=== PATIENT | male | born 1955 | race Caucasian/White ===

== ENCOUNTER 2017-11-06 15:34 | Inpatient (IN) ==
[2017-11-06] MEDS ORDERED: LIDOCAINE 1% (10mg/ml) 2mL INJ PF SDV ID ONE (16:18)
[2017-11-06] MEDS ORDERED: NS 1,000 ML IV SCH (16:44)
[2017-11-06] MEDS ORDERED: CEFAZOLIN 1 G INJECTION IVP ONE (17:07)
--- NOTE | 2017-11-06 17:07 | Anesthesia Preoperative Report ---
Anesthesia Preoperative Record - Date and Time Date: 11/06/17 Preoperative Diagnosis: septic right knee Proposed Procedure: Right Knee Arthroscopy I & D NPO Since Date: 11/06/17 NPO Since Time: 12:00 Allergies/Adverse Reactions: Allergies Allergy/AdvReac Type Severity Reaction Status Date / Time codeine [Codiene] AdvReac Nausea Verified 11/06/17 16:49 - Medications Inpatient Medications: Current Medications Lactated Ringer's (Lactated Ringers) 1,000 mls @ 50 mls/hr IV .Q20H WILFRIDO Sodium Chloride (Normal Saline) 1,000 mls @ 75 mls/hr IV .[id number] WILFRIDO Home Medications: Home Medications Medication Instructions Recorded Confirmed Type Escitalopram Oxalate [Lexapro] 20 mg PO DAILY 11/06/17 11/06/17 History Hydrocodone/APAP 5/325 [[place] 1 tab PO PRN PRN 11/06/17 11/06/17 History 5/325] Omeprazole [Prilosec] 1 cap PO ACB 11/06/17 11/06/17 History Is Patient on Beta Shabnam?: No - Medical History Respiratory: DENIES: Asthma, Bronchitis, Chronic Obstructive Pulmonary Disease (COPD), Dyspnea, Orthopnea, Pulmonary Embolism, Pneumonia, Upper Respiratory Infection, Pulmonary Edema, Sleep Apnea, Tuberculosis, Other Cardiovascular: Reports: Hypertension DENIES: Abnormal EKG, Angina, Arrhythmia, Congestive Heart Failure, Coronary Artery Disease, Heart Murmur, Hypotension, High Cholesterol, Myocardial Infarction, Rheumatic Fever, Valvular Heart Disease, Other Gastrointestional: Reports: Gastroesophageal Reflux Disease DENIES: Obstructive Bowel, Hepatitis, Cirrhosis, Nausea or Vomiting Present, Gastrointestinal Bleeding, Hiatal Hernia, Ulcer, Morbid Obesity, Other Neuro/Musculoskeletal: Denies: HX.MS.OSAR, Back Problems, Cerebrovascular Accident, Depression, Headaches, Loss of Consciousness, Muscle Weakness, Neuromuscular Disorder, Paralysis, Paresthesia, Syncope, Seizures, Other Renal/Endocrine: DENIES: Diabetes Mellitus Type 1, Diabetes Mellitus Type 2, Renal Failure, Dialysis, Thyroid Disease, Weight Loss, Weight Gain, Other Other History: DENIES: Anesthesia Reactions, Now, Blood Transfusions, Chemotherapy , Cancer, Hemophilia, Malignant Hyperthermia, Sickle Cell Disease, Other - Surgical History Anesthesia Reactions: None Hx Family Anesthesia Reaction: No History of Motion Sickness: No - Social History Hx Chewing Tobacco Use: Yes (this am) Substance Use Type: does not use Alcohol Intake: current Alcohol Intake Frequency: 0-2 drinks per day - Pertinent Findings EKG: Sinus Rhythm - Physical Exam Respiratory Exam: Present: lungs clear, bilateral breath sounds equal Cardiovascular Exam: Present: regular rate and rhythm, no murmur - Airway Assessment Mallampati Score: III TMD: 3 Fingerbreadths Overall Assessment: no airway concerns - ASA ASA Score: 2, E - Plan Regional/Trunk Block: Spinal - Discussion Discussion: Discussed risks/options/alternatives of anesthesia and questions answered. Patient consents. Nursing pain assessment noted. Attestation Statement: Prior to the delivery of any anesthetic medication, I examined the patient, developed the plan, obtained the patient's consent and discussed the risk and benefits of the procedure with the patient/guardian. - Additional Information Comments: Dr Hung declaring case emergent. Pt has not been NPO for 8 hours. Elected to proceed with Spinal Anesthesia. Pt had Lovenox yesterday at 1518. Seen by Anesthesia: Yes
[2017-11-06] MEDS ORDERED: BUPIVACAINE 0.25% (2.5mg/ml) PF 30ml INJECTION ONE (17:24)
[2017-11-06] MEDS ORDERED: MEPERIDINE 100 MG/ML INJECTION ONE (17:24)
[2017-11-06] MEDS ORDERED: ROCURONIUM 50 MG/5 ML INJECTION IVP ONE (17:28)
[2017-11-06] MEDS ORDERED: SUCCINYLCHOLINE 20mg/mL 10mL INJECTION ONE (17:28)
[2017-11-06] MEDS ORDERED: FentaNYL 250 MCG/5 ML INJECTION ONE (17:28)
[2017-11-06] MEDS ORDERED: PROPOFOL 20 ML ONE (17:28)
[2017-11-06] MEDS: LR 1,000 ML IV SCH ×3 (17:30→20:25)
--- NOTE | 2017-11-06 17:33 | Orthopedic History & Physical ---
Orthopedic HPI - HPI Comments 62 yo male sent from [facility] with a possible right knee septic arthritis. Pt began having right knee pain about 5 weeks ago. He was first seen by his PCP on 10/06/17 and was put on a PO steroid & Indomethacin for suspected gout. It helped, but the pain soon returned. He was re-evaluated 10/14/17 and was given more PO steroids which again improved his symptoms for a few days. He returned 10/31/17 and received a steroid injection which greatly improved his pain until about 2 days ago. He presented to the ER in [place] and was admitted for pain control IV antibiotics and additional studies. CT scan of his knee showed a large effusion. The knee was aspirated on 11/05/17 and specimen was held overnight and sent to [facility] on AM for Gram stain and culture. I called the lab at [facility] and a cell count was not performed. Lab shows a CRP of 181, ESR of >40. Serum WBC was 11K. I called the lab at [facility] to obtain results. The Gram stain of the synovial fluid showed 20-30 WBC/hpf but no organisms. Culture is pending. I ordered a cell count and crystal analysis to be done on the sample at their facility. Pt has pain with ROM of the knee. No CV or resp symptoms. No other joint involvement. PFSH GERD Essential HTN. Surgical History: Tonsilectomy. Vasectomy - Social History Alcohol intake: current Alcohol intake frequency: other (Drinks beer daily.) Current occupational status: employed Does patient use chewing tobacco?: Yes Review of Systems - Constitutional Constitutional: Present: fever(s), weakness. Absent: chills, night sweats - Cardiovascular Cardiovascular: Absent: chest pain, palpitations, syncope - Respiratory Respiratory: Absent: cough - Gastrointestinal Gastrointestinal: Absent: abdominal pain, diarrhea, nausea, vomiting - Musculoskeletal Musculoskeletal: Present: as per HPI - Neurological Neurological: Absent: numbness, paresthesias, tingling Medications Home Medications Medication Instructions Recorded Confirmed Type Escitalopram Oxalate [Lexapro] 20 mg PO DAILY 11/06/17 11/06/17 History Hydrocodone/APAP 5/325 [[place] 1 tab PO PRN PRN 11/06/17 11/06/17 History 5/325] Omeprazole [Prilosec] 1 cap PO ACB 11/06/17 11/06/17 History Allergies Allergy/AdvReac Type Severity Reaction Status Date / Time codeine [Codiene] AdvReac Nausea Verified 11/06/17 16:49 Orthopedic Exam - Constitutional General Appearance: Present: alert, cooperative, no acute distress - Respiratory Exam Present: CTA bilaterally, non-labored - Cardiovascular Exam Present: Regular Rate/Rhythm, pedal pulses intact Capillary Refill: < 2-3 Seconds - Abdominal Exam Present: soft. Absent: tenderness, distended - Extremities Exam Present: no edema, pulses intact, joint swelling. Absent: cyanosis, clubbing, calf tenderness - Knee Exam right Knee Exam: Present: effusion, painful ROM, other (Mild warmth. No erythema of the joint.) - Integumentary Exam Present: pink, warm, dry. Absent: rash, lesions, bruising, erythema - Neurological Exam Present: intact to light touch, no deficits - Psychiatric Exam Present: alert, oriented, normal affect Orthopedic Assessment and Plan (1) Septic joint of right knee joint Status: Acute Qualifiers: Septic arthritis organism: due to unspecified organism Qualified Code(s): M00.9 - Pyogenic arthritis, unspecified Assessment and Plan: Suspect septic arthritis of the right knee. I sent a Rx to [facility] for them to run a cell count and crystal analysis on the synovial fluid. Admit as outpatient for arthroscopic I&D of the right knee this evening. Dr Hung met with him and discussed the surgical procedure, risk vs benefits and possible complications. Pt has been getting Lovenox with the last dose being earlier today. Anesthesia recommends a general anesthetic as a result of recent Lovenox dosing. Will await cell count and final cultures from [facility]. Hospital Course Summary Disclaimer: The visit summary below is not to be considered part of the above Progress Note.
[2017-11-06] MEDS ORDERED: LIDOCAINE 2% JELLY Tube 30ml ONE (17:34)
[2017-11-06] MEDS ORDERED: SALINE FLUSH 10ml SYRINGE ONE (17:58)
[2017-11-06] MEDS ORDERED: EPHEDRINE 50mg/ml INJECTION ONE (17:58)
[2017-11-06] MEDS ORDERED: DESFLURANE 240ml LIQUID IH ONE (18:14)
[2017-11-06] MEDS ORDERED: KETOROLAC 30 MG/ML INJECTION IVP ONE (18:53)
[2017-11-06] MEDS ORDERED: ONDANSETRON 4 MG/2 ML INJECTION IVP PRN ×2 (18:53→19:23)
--- NOTE | 2017-11-06 18:54 | Anesthesia Postoperative Note ---
- Date and Time Date: 11/06/17 Time: 18:54 - Status Patient Participated in Evaluation: Patient Participated in Person Vital Signs: Temperature 99.2 F 11/06/17 16:55 Pulse Rate 74 11/06/17 16:55 Respiratory Rate 17 11/06/17 16:55 Respiratory Function: Airway Patent, Regular Respirations Cardiovascular Function: Regular Pulse EKG: Sinus Rhythm Mental Status: Alert and Oriented Pain Intensity: 0 Hydration: IV Infusing Complications During Recover: None Apparent - Follow-Up Instructions Instructions: Per Surgeon
[2017-11-06] MEDS ORDERED: LORazepam 1 MG TABLET PO PRN (19:23)
[2017-11-06] MEDS ORDERED: SENNA + DOCUSATE TABLET PO PRN (19:23)
[2017-11-06] MEDS ORDERED: ACETAMINOPHEN 325 MG TABLET PO PRN (19:23)
[2017-11-06] MEDS ORDERED: VANCOMYCIN - PHARMACY CONSULT MC ONE (19:23)
[2017-11-06] MEDS ORDERED: MORPHINE SULFATE 10 MG/ML VIAL IVP PRN (19:23)
[2017-11-06] MEDS ORDERED: SALINE FLUSH 10ml SYRINGE IV PRN (20:21)
[2017-11-06] MEDS: Oxycodone *IR* 5 MG TABLET PO PRN (22:27)
[2017-11-06] MEDS: ENOXAPARIN 40 MG/0.4 ML INJECTION SQ SCH (22:28)
[2017-11-07 06:38] VITALS: BMI 29.5
[2017-11-07] MEDS ORDERED: MORPHINE SULFATE 4mg INJECTION IVP PRN (06:45)
--- NOTE | 2017-11-07 08:26 | Orthopedic Progress Note ---
Date: Date: 11/07/17 Time: 821 Subjective/Severity of Illness: S/P arthroscopic I&D 11/06/17 for suspected septic arthritis right knee. Pt reports pain is improved this AM. He has not been up yet. Appetite is good and he is looking forward to breakfast. No other joints are painful. Synovial fluid cell count from surgery was 42,297. (cell count from 11/04/17 in [place] was done at [facility], >53,000). Gram stain is pending. Pt is afebrile. WBC down to 9.7 Orthopedic Objective PO Vital signs: Temperature 97.0 F 11/07/17 07:00 Pulse Rate 81 11/07/17 07:00 Respiratory Rate 16 11/07/17 07:00 Blood Pressure 158/90 H 11/07/17 07:00 Pulse Oximetry 94 11/07/17 07:00 Height and Weight: Height 5 ft 10 in Weight 208 lb 15.971 oz Body Mass Index 29.5 - Constitutional General Appearance: Present: alert, cooperative, no acute distress - Respiratory Exam Present: non-labored - Cardiovascular Exam Present: pedal pulses intact - Abdominal Exam Present: soft. Absent: tenderness, distended - Extremities Exam Extremities: Present: pulses intact. Absent: calf tenderness - Knee Exam Knee Exam: Present: effusion, painful ROM - Surgical Site Incision: sutures present, dressing intact, no drainage - Integumentary Exam Present: pink, warm, dry. Absent: rash, lesions, bruising, erythema - Neurological Exam Present: no deficits - Psychiatric Exam Present: alert, normal affect - Labs Result Diagrams: 11/07/17 04:07 11/07/17 04:07 Abnormal lab results 11/07/17 11/07/17 Range/Units 04:07 04:07 RBC 3.77 L (4.50-5.90) M/MM3 Hgb 11.8 L (13.5-17.5) GM/DL Hct 37.5 L (41-53) % Neut % (Auto) 72.2 H (33-66) % Lymph % (Auto) 12.2 L (23-45) % [place] % (Auto) 14.7 H (0-9.0) % [place] # (Auto) 1.4 H (0-0.8) T/MM3 Glucose 121 H (75-110) MG/DL H & H 11/07/17 Range/Units 04:07 Hgb 11.8 L (13.5-17.5) GM/DL Hct 37.5 L (41-53) % Orthopedic Assessment and Plan (1) Septic joint of right knee joint Status: Acute Qualifiers: Septic arthritis organism: due to unspecified organism Qualified Code(s): M00.9 - Pyogenic arthritis, unspecified Assessment and Plan: Suspect septic arthritis of the right knee. Await final cultures from both [facility] and the cultures taken in the OR. Continue Vanco IV until cultures are available. Pt may be up with WBAT and work on ROM as tolerated by pain. Lovenox, SCDs and mobilization to prevent DVTs. - Anticoagulation Therapy Anticoagulation: other (Lovenox.) Hospital Course Summary Disclaimer: The visit summary below is not to be considered part of the above Progress Note.
--- NOTE | 2017-11-07 08:55 | Pharmacy Consult-Antibiotics ---
Pharmacy Consult-Vancomycin - Laboratory Information WBC 9.7 T/MM3 (4.5-11.0) 11/07/17 04:07 BUN 12.0 MG/DL (9-20) 11/07/17 04:07 Creatinine 1.1 MG/DL (0.8-1.5) 11/07/17 04:07 - Consult Information VANCOMYCIN CONSULT: 62 yr old male 5"10" 95 kg Dx: Right Septic Knee Current Renal Fx: SCr = 1.1 mg/dl. Will give Vancomycin 1500 mg IV q12hrs. Goal trough range is 15-20. Will continue to monitor and adjust regimen to maintain therapeutic levels. Thank you. Anna Fabian, PharmD
[2017-11-07] MEDS: Oxycodone *IR* 5 MG TABLET PO PRN ×2 (10:24→17:59)
--- NOTE | 2017-11-07 11:27 | Operative Note ---
DATE OF OPERATION 11/06/2017 PREOPERATIVE DIAGNOSIS Right knee septic arthritis. POSTOPERATIVE DIAGNOSIS Right knee septic arthritis. PROCEDURE Right knee arthroscopic irrigation and debridement with patellar chondroplasty and partial lateral meniscectomy. SURGEON Luis Carlos Hung MD ANESTHESIA General COMPLICATIONS None TOURNIQUET TIME, FLUIDS AND EBL Please see Anesthetic records. DESCRIPTION OF PROCEDURE Mr. Harley and his right knee were identified and marked in the preoperative holding area. He was brought back to the operating suite and placed under general anesthesia. He was placed supine on the operating table. His right lower extremity was placed in a leg baker. The left leg was placed in a well- leg baker. The end of the bed was removed. The right lower extremity was then prepped and draped in my normal sterile fashion. Time-out was performed. The leg was exsanguinated and the tourniquet inflated to 250 mmHg. Both portal sites were injected with local anesthetic. I then established anterior and medial portal sites. Upon placing the camera trocar, I did catch synovial fluid into a cup and we sent this for culture. He had quite a bit of fat pad which was removed for visualization purposes. There was some mild fraying to the anterior meniscus as well medially which was shaved. The ligamentum was also removed with a shaver. The medial part was then visualized. He had grade 1 damage to the medial femoral condyle. The medial meniscus was probed and in good condition. The anterior cruciate ligament was also probed; it was in good condition. We then moved to the lateral compartment. He had some changes on the tibial plateau which appeared to be possibly pseudogout crystals. He had a partial tear to the posterior horn of the lateral meniscus but the root was still well-adhered. I did use a shaver to shave this down to a smooth edge. The remaining meniscus was in good condition and the lateral compartment cartilage was in good condition. We then moved to the patellofemoral compartment. Again he had grade 1 and some grade 2 changes to the patella and a chondroplasty was performed. We then shaved edematous and red appearing synovium in the notch. Also, used a grabber to take a synovial biopsy to send for culture as well. A thorough synovectomy was performed in the pouch and along the gutters with the shaver. A total of three bags of three liters each of normal saline was used. Once the water finished, then he was allowed to drain fluid through the trocar. The instruments were then removed. Portal sites were closed with nylon in a simple interrupted fashion. Sterile dressings were placed, tourniquet was let down, drapes were removed. He was allowed to awaken from general anesthesia and taken to the recovery room under the care of Anesthesia. He tolerated the procedure well. There were no complications. IRIS
[2017-11-07] MEDS: LR 1,000 ML IV SCH ×2 (14:33→20:50)
[2017-11-07] MEDS: IBUPROFEN 600 MG TABLET PO PRN (18:35)
[2017-11-07] MEDS: ENOXAPARIN 40 MG/0.4 ML INJECTION SQ SCH (20:00)
[2017-11-08] MEDS: Oxycodone *IR* 5 MG TABLET PO PRN ×4 (05:17→20:17)
--- NOTE | 2017-11-08 08:11 | Orthopedic Progress Note ---
Date: Date: 11/08/17 Time: 806 Subjective/Severity of Illness: Anthony states he feels a lot better today. He is much less painful and was able to ambulate to the restroom without crutches. He had a BM. Last night he spiked a temperature of 101.4. A single dose of Ibuprofen was added to his scheduled Tylenol. His temp did improve. He denies cough, sputum production, chest pain, shortness of breath or calf pain. He did describe some ankle joint line pain. It is present only when up. He has had it for awhile "because I walk so funny". His blood pressure is elevated and he notes he used to take an unknown blood pressure medication when he lived in [place], but has "not taken it of late". No new results are available on his cultures at this time, nor are their new labs available. Orthopedic Objective PO Vital signs: Temperature 97.5 F 11/08/17 04:00 Pulse Rate 74 11/08/17 04:00 Respiratory Rate 18 11/08/17 04:00 Blood Pressure 173/96 H 11/08/17 04:00 Pulse Oximetry 93 11/08/17 04:00 Height and Weight: Height 5 ft 10 in Weight 208 lb 15.971 oz Body Mass Index 29.5 - Constitutional General Appearance: Present: alert, cooperative, no acute distress - Respiratory Exam Present: non-labored - Cardiovascular Exam Present: pedal pulses intact - Abdominal Exam Present: soft. Absent: tenderness, distended - Extremities Exam Extremities: Present: pulses intact, joint swelling. Absent: calf tenderness Comments: Knee has a 3 plus effusion, sutures intact, no drainage, dressing was changed. ROM is painful with passive and active motion but he feels it is improved right ankle: Non TTP over the deltoid, ATF, CC ligaments. Ligamentously stable. Non TTP over all abe landmarks. 2 plus pulses, no calf tenderness. Full ROM of the ankle without pain. - Knee Exam Knee Exam: Present: effusion, painful ROM - Surgical Site Incision: sutures present, dressing intact, no drainage - Integumentary Exam Present: pink, warm, dry. Absent: rash, lesions, bruising, erythema - Neurological Exam Present: intact to light touch, no deficits - Psychiatric Exam Present: alert, normal affect - Labs Result Diagrams: 11/07/17 04:07 11/07/17 04:07 H & H 11/07/17 Range/Units 04:07 Hgb 11.8 L (13.5-17.5) GM/DL Hct 37.5 L (41-53) % Orthopedic Assessment and Plan (1) Septic joint of right knee joint Status: Acute Qualifiers: Septic arthritis organism: due to unspecified organism Qualified Code(s): M00.9 - Pyogenic arthritis, unspecified Assessment and Plan: Suspect septic arthritis of the right knee. Await final cultures from both [place] and the cultures taken in the OR. Continue Vanco IV until cultures are available. Pt may be up with WBAT and work on ROM as tolerated by pain. Lovenox, SCDs and mobilization to prevent DVTs. I'll start Metoprolol for HTN. If continued issues present, hospitalist consult. - Anticoagulation Therapy Anticoagulation: other Hospital Course Summary Disclaimer: The visit summary below is not to be considered part of the above Progress Note.
[2017-11-08] MEDS: LR 1,000 ML IV SCH ×2 (17:41→20:17)
[2017-11-08] MEDS: ENOXAPARIN 40 MG/0.4 ML INJECTION SQ SCH (20:18)
[2017-11-09] MEDS: Oxycodone *IR* 5 MG TABLET PO PRN ×6 (00:33→21:37)
[2017-11-09] MEDS: LR 1,000 ML IV SCH ×2 (06:01→20:41)
[2017-11-09] MEDS: IBUPROFEN 600 MG TABLET PO PRN (07:31)
--- NOTE | 2017-11-09 10:02 | Orthopedic Progress Note ---
Date: Date: 11/09/17 Time: 958 Subjective/Severity of Illness: Anthony continues to feel better day by day. He only has minimal pain today. He notes pain in his right great toe MTP joint. He is known to have gout. Cultures, both synovial fluid and tissue, are negative for organism at 2 days. He continues on Vanco. He is afebrile. Orthopedic Objective PO Vital signs: Temperature 98.7 F 11/09/17 07:26 Pulse Rate 70 11/09/17 07:26 Respiratory Rate 16 11/09/17 07:26 Blood Pressure 176/99 H 11/09/17 07:26 Pulse Oximetry 98 11/09/17 07:26 Height and Weight: Height 5 ft 10 in Weight 203 lb 7.787 oz Body Mass Index 29.5 - Constitutional General Appearance: Present: alert, cooperative, no acute distress - Respiratory Exam Present: non-labored - Cardiovascular Exam Present: pedal pulses intact - Abdominal Exam Present: soft. Absent: tenderness, distended - Extremities Exam Extremities: Present: pulses intact, joint swelling. Absent: calf tenderness - Knee Exam Knee Exam: Present: effusion, painful ROM - Surgical Site Incision: sutures present, dressing intact, no drainage Surgical Site Comments: less effusion today, non erythemic portal sites. right foot: TTP directly over the MTP joint, minimal swelling. No open wound. Pain free active and passive motion. - Integumentary Exam Present: pink, warm, dry. Absent: rash, lesions, bruising, erythema - Neurological Exam Present: intact to light touch, no deficits - Psychiatric Exam Present: alert, normal affect - Labs Result Diagrams: 11/08/17 08:27 11/08/17 08:27 H & H 11/07/17 11/08/17 Range/Units 04:07 08:27 Hgb 11.8 L 11.2 L (13.5-17.5) GM/DL Hct 37.5 L 35.8 L (41-53) % Orthopedic Assessment and Plan (1) Septic joint of right knee joint Status: Acute Qualifiers: Septic arthritis organism: due to unspecified organism Qualified Code(s): M00.9 - Pyogenic arthritis, unspecified Assessment and Plan: Suspect septic arthritis of the right knee. Await final cultures from both [place] and the cultures taken in the OR. Continue Vanco IV until cultures are available. Pt may be up with WBAT and work on ROM as tolerated by pain. Lovenox, SCDs and mobilization to prevent DVTs. I'll increase Metoprolol for HTN. I discussed starting an NSAID for gout, he wanted to hold off a day. Hospital Course Summary Disclaimer: The visit summary below is not to be considered part of the above Progress Note.
[2017-11-09] MEDS: FOLIC ACID 1 MG TABLET PO SCH (13:00)
[2017-11-09] MEDS: MULTI-VITAMIN + MINERAL TABLET PO SCH (13:01)
[2017-11-09] MEDS: LORazepam 1 MG TABLET PO SCH ×2 (15:35→20:44)
[2017-11-09] MEDS: ENOXAPARIN 40 MG/0.4 ML INJECTION SQ SCH (20:40)
[2017-11-10] MEDS: LR 1,000 ML IV SCH (02:07)
[2017-11-10 03:21] VITALS: TEMP 99.5
[2017-11-10 07:14] VITALS: RESP 16; O2SAT 94
[2017-11-10] MEDS ORDERED: COLCHICINE 0.6 MG TABLET PO ONE (09:08)
[2017-11-10] MEDS ORDERED: INDOMETHACIN 25 MG CAPSULE PO SCH (09:09)
--- NOTE | 2017-11-10 09:09 | Infectious Disease Consult ---
Infectious Disease Consult Date of Consultation: 11/10/17 Requesting Physician: Luis Carlos Hung Reason for Consultation: antibiotic recs History of Present Illness: Mr. Harley is a 62-year-old man with a history of gout. He reports that he has had gout in both of his knees his ankles and has big toes but has not had a flare for about a year. He started having pain around his right knee in September. He had previously been on allopurinol daily however he stopped this due to cost concern. He was seen by his PCP on October 06 and given indomethacin for 5 days and prednisone 50 mg daily for 5 days. He was seen again by his PCP on October 14 and at that appointment he reported that he was doing a little bit better but his symptoms worsened again. Labs were drawn including a uric acid and he was given colchicine for 3 days indomethacin for 10 days and a prednisone taper over 7 days. He was seen again by his PCP for and at this appointment he was complaining of thigh swelling and edema and that his knee was doing better. His right knee was injected with bupivicaine, lidocaine and Kenalog. He was hospitalized in [facility] on November 05. Right knee synovial fluid was obtained November 05 at 1430. He was started on ceftriaxone November 05 at 1514 and vancomycin on 11/05 at 1600. There was concern for possible septic joint and he was transferred here for further evaluation. It took a few days to receive the results from the synovial fluid that was obtained at [facility] however this culture is negative and the Gram stain was negative. Cell count on the synovial fluid revealed 34,375 white cells 96% were neutrophils. There were monosodium urate crystals seen and calcium pyrophosphate dihydrate crystals observed as well. He was taken to the operating room the evening of November [address] Hung for irrigation and debridement of his right knee. Her operatively it was noted that he appeared to have some crystals in the joint. There was no gross purulence noted. Stains and cultures were obtained of the synovial fluid and tissue from his surgery on the . Gram stains and cultures are negative. He has been on vancomycin. He's also been noted to have fever twice during this hospitalization. Today he reports that his right great toe has been red and inflamed for the past couple of days. He has not been receiving colchicine or indomethacin. I've been asked to help with his antibiotics. Medications Home Medications Medication Instructions Recorded Confirmed Type Escitalopram Oxalate [Lexapro] 20 mg PO DAILY 11/06/17 11/06/17 History Hydrocodone/APAP 5/325 [[place] 1 tab PO PRN PRN 11/06/17 11/06/17 History 5/325] Omeprazole [Prilosec] 1 cap PO ACB 11/06/17 11/06/17 History Allergies Allergy/AdvReac Type Severity Reaction Status Date / Time codeine [Codiene] AdvReac Nausea Verified 11/06/17 16:49 PFS Patient Stated Medical History Cerebrovascular Accident No Paralysis No Seizures No Syncope No Angina No Cardiac Arrhythmia No Congestive Heart Failure No Coronary Artery Disease No Heart Murmur No Hypertension Yes Hypotension No Myocardial Infarction No Rheumatic Fever No Valvular Heart Disease No Other Cardiology No Asthma No Bronchitis No Chronic Obstructive Pulmonary No Disease (COPD) Pneumonia No Pulmonary Edema No Pulmonary Embolism No Sleep Apnea No Tuberculosis No Other Respiratory No Diabetes Mellitus Type 1 No Diabetes Mellitus Type 2 No Cirrhosis No Gastroesophageal Reflux Yes Disease Gastrointestinal Bleeding No Hepatitis No Hiatal Hernia No Obstructive Bowel No Ulcer No Other GI No Osteoarthritis No Other Musculoskeletal No Anesthesia Reactions No Blood Transfusions No Chemotherapy No Malignant Hyperthermia No Other No Depression No Now No Gout Surgical History: Tonsilectomy. Vasectomy. I&D R knee Family History: He states both of his parents are alive and denies any medical problems in the family. He denies that his parents have gout. - Social History Smoking status: Unknown if ever smoked Alcohol intake: current (daily) Does patient use chewing tobacco?: Yes Review of Systems All systems PM: 10-point ROS was reviewed, no additional remarkable complaints except - Constitutional Constitutional: Present: fever(s) - Gastrointestinal Gastrointestinal: Absent: diarrhea, nausea, vomiting - Musculoskeletal Musculoskeletal: Present: arthralgias (R knee, also RLE and R great toe) - Integumentary/Breasts Integumentary: Absent: rash - Neurological Neurological: Absent: headache(s) Exam Vital Signs: Temperature 99.5 F 11/10/17 07:12 Pulse Rate 71 11/10/17 07:12 Respiratory Rate 16 11/10/17 07:12 Blood Pressure 136/81 11/10/17 07:12 Pulse Oximetry 94 11/10/17 07:12 Height/Weight/BMI: Height 1.78 m Weight 93.2 kg Body Mass Index 29.5 - Constitutional Present: no acute distress, well nourished, well developed - Routine HEENT Exam Head: Present: normocephalic, atraumatic Eye: Present: EOMI, PERRL ENT: Present: mucous membranes moist, oropharynx clear Comments: dentition fair - Routine Neck Exam Present: supple - Routine Respiratory Exam Present: CTA bilaterally - Routine Cardiovascular Exam Present: RRR - Routine Abdominal Exam Present: soft, normoactive bowel sounds, non distended, non tender - Routine Extremities Exam Present: edema (trace RLE). Absent: cyanosis, clubbing - Detailed Lower Extremity Exam Knee: Right joint effusion, Right warmth Foot/Toes: Right erythema (1st MTP joint), Right swelling (1st MTP joint), Right tenderness (1st MTP joint) - Routine Skin Exam Absent: wounds, rash Comments: R knee incisions ok - Routine Neurological Exam Present: alert, oriented X3, CN II-XII intact. Absent: motor deficit - Routine Psychiatric Exam Present: normal affect, normal thought process Results - Labs CBC & Chem 7: 11/10/17 05:57 11/10/17 05:57 Microbiology Results: Microbiology 11/06/17 18:30 Knee, Right Intraop Tissue Gram Stain - Final 11/06/17 18:30 Knee, Right Intraop Tissue Surgical Culture - Final No Growth After 3 Days 11/06/17 18:30 Synovial Fluid, Right Knee Gram Stain - Final 11/06/17 18:30 Synovial Fluid, Right Knee Body Fluid Culture - Preliminary No Growth After 3 Days Synovial fluid gram stain and culture negative 11/05/17 (from [facility]) Impression: Acute gout involving R knee, s/p I&D 11/06/17 Fever, elevated inflammatory markers, and synovial fluid pleocytosis secondary to gout Acute gout R 1st MTP joint HTN Daily etoh use Recommendation: I don't think there is enough evidence to support a diagnosis of septic arthritis. I would recommend discontinuing the vancomycin. I also recommend treating his gout more aggressively with anti-inflammatories. I discussed my recommendations with Dr. Hung.
--- NOTE | 2017-11-10 09:14 | Orthopedic Progress Note ---
Date: Date: 11/10/17 Time: 909 Subjective/Severity of Illness: Anthony reports he is having more pain again today. He is having trouble with mobility. The right knee and now the right great toe MP joint are painful. Unable to move either without pain. Dr Fitzpatrick is scheduled to see him today. Bowels have moved. Cultures from surgery are negative to date. Last report I got from [facility] on 11/07/17, showed no growth on culture but there was gout crystals seen on the synovial fluid. Orthopedic Objective PO Vital signs: Temperature 99.5 F 11/10/17 07:12 Pulse Rate 71 11/10/17 07:12 Respiratory Rate 16 11/10/17 07:12 Blood Pressure 136/81 11/10/17 07:12 Pulse Oximetry 94 11/10/17 07:12 Height and Weight: Height 5 ft 10 in Weight 205 lb 7.533 oz Body Mass Index 29.5 - Constitutional General Appearance: Present: alert, cooperative, no acute distress - Respiratory Exam Present: non-labored - Cardiovascular Exam Present: pedal pulses intact - Abdominal Exam Present: soft. Absent: tenderness, distended - Extremities Exam Extremities: Present: pulses intact, joint swelling (Right knee and right great to MP joint.). Absent: calf tenderness Comments: Swelling, erythema and warmth noted to right great toe MP joint today. Painful with ROM. - Knee Exam Knee Exam: Present: effusion (Not as severe as it was on admission.), painful ROM - Surgical Site Incision: clean, dry, intact, sutures present, dressing intact, no drainage - Integumentary Exam Present: warm, erythema (great toe MP joint.). Absent: rash, lesions, bruising - Neurological Exam Present: intact to light touch, no deficits - Psychiatric Exam Present: alert, normal affect - Labs Result Diagrams: 11/10/17 05:57 11/10/17 05:57 Abnormal lab results 11/10/17 11/10/17 Range/Units 05:57 05:57 RBC 3.63 L (4.50-5.90) M/MM3 Hgb 11.2 L (13.5-17.5) GM/DL Hct 35.2 L (41-53) % Neut % (Auto) 70.4 H (33-66) % Lymph % (Auto) 14.4 L (23-45) % [place] % (Auto) 13.2 H (0-9.0) % [place] # (Auto) 1.1 H (0-0.8) T/MM3 Carbon Dioxide 31 H (22-30) MEQ/L Glucose 113 H (75-110) MG/DL H & H 11/07/17 11/08/17 11/10/17 Range/Units 04:07 08:27 05:57 Hgb 11.8 L 11.2 L 11.2 L (13.5-17.5) GM/DL Hct 37.5 L 35.8 L 35.2 L (41-53) % Orthopedic Assessment and Plan (1) Septic joint of right knee joint Status: Acute Qualifiers: Septic arthritis organism: due to unspecified organism Qualified Code(s): M00.9 - Pyogenic arthritis, unspecified Assessment and Plan: Suspect septic arthritis of the right knee. Likely gout of the right great toe MP joint. Await final cultures from both [facility] and the cultures taken in the OR on . Continue Vanco IV until cultures are available or changed by Dr Fitzpatrick. Pt may be up with WBAT and work on ROM as tolerated by pain. I will have PT work with him. Lovenox, SCDs and mobilization to prevent DVTs. Add Colchicine and Indocin for gout. Addendum: Dr Fitzpatrick has seen Mr Harley. In the presence of normal cultures, we will stop the Vanco and treat for Gout. Pt can go home today with Indocin and Colchicine. F/U in one week. Discharge instructions reviewed with Mr Harley. Hospital Course Summary Disclaimer: The visit summary below is not to be considered part of the above Progress Note.
[2017-11-10] MEDS ORDERED: ESCITALOPRAM 20 MG TABLET PO SCH (09:15)
[2017-11-10] MEDS: MULTI-VITAMIN + MINERAL TABLET PO SCH (10:53)
[2017-11-10] MEDS: FOLIC ACID 1 MG TABLET PO SCH (10:53)
[2017-11-10 11:04] VITALS: BP 150/89; PULSE 78
[2017-11-10] MEDS: LORazepam 1 MG TABLET PO SCH (11:11)
--- NOTE | 2017-11-10 13:23 | Discharge Summary ---
Orthopedic Discharge Info Date of admission: 11/06/17 18:46 Anticipated date of discharge: 11/10/17 Primary care physician: Cl Basilio DO Attending Physician: Luis Carlos Hung MD Consults: 11/06/17 16:18 Consult to Anesthesiology [CONS] Routine Reason For Exam: surgery 11/06/17 19:23 Physician Consult [CONS] Routine Consulting Provider: Carla Fitzpatrick Reason For Exam: Suspected septic arthritis right knee Ordering Provider has Notified Dance Coach: No - Discharge Diagnosis (1) Acute gout of right knee Status: Acute - Procedures Procedures: Arthroscopic I&D right knee 11/06/17. - Laboratory Result Diagrams: 11/10/17 05:57 11/10/17 05:57 Laboratory: Abnormal lab results 11/10/17 11/10/17 Range/Units 05:57 05:57 RBC 3.63 L (4.50-5.90) M/MM3 Hgb 11.2 L (13.5-17.5) GM/DL Hct 35.2 L (41-53) % Neut % (Auto) 70.4 H (33-66) % Lymph % (Auto) 14.4 L (23-45) % [place] % (Auto) 13.2 H (0-9.0) % [place] # (Auto) 1.1 H (0-0.8) T/MM3 Carbon Dioxide 31 H (22-30) MEQ/L Glucose 113 H (75-110) MG/DL H & H 11/07/17 11/08/17 11/10/17 Range/Units 04:07 08:27 05:57 Hgb 11.8 L 11.2 L 11.2 L (13.5-17.5) GM/DL Hct 37.5 L 35.8 L 35.2 L (41-53) % - Microbiology Microbiology 11/06/17 18:30 Knee, Right Intraop Tissue Gram Stain - Final 11/06/17 18:30 Knee, Right Intraop Tissue Surgical Culture - Final No Growth After 3 Days 11/06/17 18:30 Synovial Fluid, Right Knee Gram Stain - Final 11/06/17 18:30 Synovial Fluid, Right Knee Body Fluid Culture - Preliminary No Growth After 3 Days Orthopedic Discharge HPI - HPI Comments Mr. Harley is a 62-year-old man with a history of gout. He reports that he has had gout in both of his knees his ankles and has big toes but has not had a flare for about a year. He started having pain around his right knee in September. He had previously been on allopurinol daily however he stopped this due to cost concern. He was seen by his PCP on October 06 and given indomethacin for 5 days and prednisone 50 mg daily for 5 days. He was seen again by his PCP on October 14 and at that appointment he reported that he was doing a little bit better but his symptoms worsened again. Labs were drawn including a uric acid and he was given colchicine for 3 days indomethacin for 10 days and a prednisone taper over 7 days. He was seen again by his PCP for and at this appointment he was complaining of thigh swelling and edema and that his knee was doing better. His right knee was injected with bupivicaine, lidocaine and Kenalog. He was hospitalized in [facility] on November 05. Right knee synovial fluid was obtained November 05 at 1430. He was started on ceftriaxone November 05 at 1514 and vancomycin on 11/05 at 1600. There was concern for possible septic joint and he was transferred here for further evaluation. It took a few days to receive the results from the synovial fluid that was obtained at [facility] however this culture is negative and the Gram stain was negative. Cell count on the synovial fluid revealed 34,375 white cells 96% were neutrophils. There were monosodium urate crystals seen and calcium pyrophosphate dihydrate crystals observed as well. Orthopedic Hospital Course Hospital course: 11/10/17 13:23 Upon admission, Anthony had a warm, swollen right knee that was not improving after 2 days of IV vanco and Rocephin. His labs on 11/05/17 showed a WBC of 11.2, ESR 41, CRP increased from 126 to 181 and he was running a temp of 99.2 degrees. All indications were that of a septic arthritis of his right knee. Cultures would not be available for several days. Dr Hung took Mr Harley to surgery for arthroscopic I&D of the right knee on . Synovial fluid and tissues were sent for analysis and culture. Post operatively, pt was kept on IV Vancomycin. Cultures never did grow anything and gram stains were negative. Synovial fluid analysis at the time of surgery did show nucleated cell count of 42,297 with 93% neutrophils. Dr Fitzpatrick was consulted for ID opinion and recommendations. She recommended treating him for gout in the absence of positive cultures. IV vanco was discontinued and pt given Indocin and Colchicine for tx of his gout. He was placed on Lovenox and SCDs for DVT prophylaxis. Prn medication for his bowels were ordered and his bowels have moved. He is voiding without difficulties. Pain was addressed with IV and eventually PO medication. His BPs were elevated most of the time during this hospitalization. Toprol XL was ordered and pt will f/u with his PCP as an outpatient for ongoing treatment. He has been mobile short distances using crutches. He is safe and stable for discharge. Surgical wounds are healing well. Wound care was discussed. He is discharged to his home and will f/u with me in 1 weeks. Pt encouraged to call with increasing pain, warmth or swelling in the knee. He was educated on GI issues with Colchicine and indomethacin. Care extended to > 2 midnight stays?: Yes Discharge Plan - Med Rec/Dispo Referrals/Follow Up: Keegan James PA [Physician Rn Radiation] - 11/17/17 9:30 am [facility] Instructions: [facility] Postop Instructions Prescriptions: New Colchicine 0.6 mg PO DAILY #10 tab Folic Acid [Folate] 1 mg PO DAILY tablet Indomethacin [Indocin] 25 mg PO BIDWM #14 cap Milk of Magnesia [Mom] 30 ml PO DAILY PRN udc PRN Reason: Constipation Oxycodone *IR* [Roxicodone *Ir*] 5 - 15 mg PO Q3H PRN #50 tab PRN Reason: Pain Acetaminophen [Tylenol] 650 mg PO Q4H PRN tablet PRN Reason: Pain Thiamine HCl 100 mg PO DAILY tablet Continue Escitalopram Oxalate [Lexapro] 20 mg PO DAILY Omeprazole [Prilosec] 1 cap PO ACB Discontinued Hydrocodone/APAP 5/325 [[place] 5/325] 1 tab PO PRN PRN PRN Reason: Pain - Disposition 01 Discharged Home, Self-Care - Dismissal Complete Discharge Instructions are:: Complete
[2017-11-11] MEDS ORDERED: OMEPRAZOLE 20 MG CAPSULE PO SCH (06:30)
== END 2017-11-10 14:40 | disposition home or self-care (01) | DRG 489 ==
LOC: SRG → EDSTATUS 16:41
PROVIDERS: ADMIT Orthopaedic Surgery; ATTEND Orthopaedic Surgery